=== PATIENT | male | born 1940 | race Caucasian/White ===

== ENCOUNTER 2019-05-24 14:02 | Outpatient (CLI) | payer MEDICARE, SELFPAY ==
--- NOTE | 2019-05-24 14:18 | XRR_ITS ---
PROCEDURE INFORMATION: Exam: XR Chest, 2 Views Exam date and time: 05/24/2019 2:18 PM Age: 79 years old Clinical indication: Condition or disease; Other: Renal cell cancer; Additional info: Renal cell carcinoma TECHNIQUE: Imaging protocol: XR of the chest Views: 2 views. COMPARISON: [place] Chest 1 [place] [id number] 03/09/2019 10:[address] abdomen pelvis wo con [id number] 03/09/2019 10:32:08 PM FINDINGS: Lungs: Unremarkable. No consolidation. Pleural space: Unremarkable. No pleural effusion. No pneumothorax. Heart/Mediastinum: CABG. No cardiomegaly. Bones/joints: No acute findings. Sternotomy. XR/XR chest 2V* [id number] IMPRESSION: No acute findings. Lung nodules seen in the lung bases on abdominal CT 03/09/2019 are not discretely identified. Consider follow-up chest CT.
[2019-05-24 14:37] LABS: Basophils # 0.1 10^3/uL (0.0-0.1); Basophils % 0.8 %; Eosinophils # 0.2 10^3/uL (0.0-0.8); Hematocrit 48.5 % (42.0-52.0); Hemoglobin 15.9 g/dL (11.7-16.6); Lymphocytes # 2.1 10^3/uL (0.8-4.8); Lymphocytes % 27.1 %; Mean Corpuscular HGB Conc 32.8 g/dL (30.0-36.0); Mean Corpuscular Hemoglobin 30.8 pg (28.0-34.0); Mean Corpuscular Volume 93.8 fL (80-94); Mean Platelet Volume 10.9 fL (7.4-10.4); Monocytes # 0.6 10^3/uL (0.2-0.9); Monocytes % 7.4 %; Neutrophils # 4.7 10^3/uL (1.8-7.7); Neutrophils % 61.6 %; Nucleated Red Blood Cells % 0 %; Platelet Count 215 10^3/cmm (130-400); Red Blood Count 5.17 10^6/uL (4.1-5.3); Red Cell Distribution Width 13.8 % (12.1-15.1); White Blood Count 7.6 10^3/uL (4.0-10.0)
[2019-05-24 15:17] LABS: Alanine Aminotransferase 16 U/L (0-41); Albumin Level 3.8 g/dL (3.5-5.2); Alkaline Phosphatase 157 IU/L (40-130); Anion Gap 16.3 (5-19); Aspartate Amino Transferase 17 U/L (0-40); Blood Urea Nitrogen 16 mg/dL (8-23); Carbon Dioxide 26 mmol/L (22-29); Chloride 101 mmol/L (98-107); Globulin 3.5 g/dL (1.3-4.6); Glucose 156 mg/dL (74-106); Potassium 4.3 mmol/L (3.5-5.1); Sodium 139 mmol/L (136-145); Total Bilirubin 0.5 mg/dL (0.15-1.2); Total Protein 7.3 g/dL (6.6-8.7)
== END 2019-05-24 14:03 | disposition home or self-care (01) ==
LOC: RAD 14:10
PROVIDERS: Family Provider Registered Nurse; PCP Family Medicine; Visit Provider Urology
DX: C64.9 Malignant neoplasm of unspecified kidney, except renal pelvis (principal)
CPT/HCPCS: 71046; 80053; 81001; 85025

== ENCOUNTER 2019-06-20 09:33 | Outpatient (CLI) | payer MEDICARE, SELFPAY ==
--- NOTE | 2019-06-20 11:00 | CT_ITS ---
WS: [id number] CT ABDOMEN PELVIS TECHNIQUE: Noncontrast CT of the abdomen and pelvis with coronal and sagittal reformatted images. CLINICAL INFORMATION: Stone protocol COMPARISON: None. DLP: 593.[address] scans at [facility] use at least one of these dose optimization techniques: automat ed exposure control; mA and/or kV adjustment per patient size (includes targeted exams where dose is matched to clinical indication); or iterative reconstruction. FINDINGS: Noncontrast liver is normal in appearance. Cholelithiasis with large gallstone measuring 11 mm. No si gnificant gallbladder wall thickening or fluid in the gallbladder fossa. Normal spleen. Moderate esop hageal hiatal hernia. Bibasilar atelectasis. Noncalcified nodules in both lower lobes the largest sub pleural left lower lobe measuring 5 mm. Additional noncalcified nodule right lower lobe laterally mickey suring 5.3 mm. Additional smaller noncalcified nodules in the right and left lower lobe with nodular infiltrates in the left lower lobe. Nodules measure 8 to 9 mm. A few tiny subcentimeter right middle lobe nodules partially visualized. Normal right adrenal gland. Prior postoperative changes left nephrectomy. Left adrenal nodule measuri ng 15 mm appears progressed from the last several studies. While this may represent a lipid poor pina [place] metastatic disease not excluded. Small esophageal varices. Fatty atrophy of the pancreas. No hydr onephrosis right kidney. Sigmoid diverticulosis. No evidence of acute diverticulitis. Chronic anterior wedging at T12 with mild retropulsion of the posterior cortex with moderate central canal stenosis. Increased lytic changes in the posterior T12 vertebral body with soft tissue mass and erosion of the posterior cortex consistent with metastatic disease. Associated pathologic compressio n. Lytic changes extending into the pedicles bilaterally. Associated epidural involvement with modera te central canal stenosis. Message left for Dr. Lindsay's nurse at 06/20/2019 11:[address]/CT kidney stone [id number] IMPRESSION: 1. Prior postoperative changes left nephrectomy. 2. No right renal parenchymal or ureteral calculi. No hydronephrosis. 3. Stable prominent gallstone measuring 11 mm. 4. Multiple pulmonary nodules in the lung bases the largest measuring 8 to 9 m m. These appear progressed in size and number since March 09, 2019 suspiciou s for metastatic disease. Recommend further evaluation with chest CT. 5. Left adrenal lesion is increased in size over the past several studies toda y measuring 1.4 cm. This may represent a lipid poor adenoma but metastatic dise ase not excluded. 6. Pathologic Compression with anterior wedging of the T12 vertebral body with moderate central canal stenosis. Lytic lesion in the posterior T12 vertebral b johann has progressed consistent with metastatic disease. Associated epidural invo lvement. This can be further evaluated with MRI. Mild to moderate central canal stenosis. 7. Also consider PET CT for further evaluation
== END 2019-06-20 09:34 | disposition home or self-care (01) ==
LOC: CT 09:36
PROVIDERS: Family Provider Registered Nurse; PCP Family Medicine; Visit Provider Urology
DX: Z98.890 Other specified postprocedural states (principal); K80.80 Other cholelithiasis without obstruction; R91.8 Other nonspecific abnormal finding of lung field; E27.8 Other specified disorders of adrenal gland; M48.04 Spinal stenosis, thoracic region
CPT/HCPCS: 74176

== ENCOUNTER 2019-06-28 09:21 | Outpatient (CLI) | payer MEDICARE, SELFPAY ==
--- NOTE | 2019-06-28 15:18 | ONC CON_ITS ---
Dr. Shahid New Patient Note Patient: Asher Che Unit #: [id number]: 1940 Dicatated By: Jonnie Shahid M.D.Date of Visit: Jun 28, 2019 Onc MED New Patient/Consult Referring Physician: Dr. Efren Lindsay M.D. History of Present Illness: Mr. 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 Patient was also noted to have left adrenal mass for which on 02/08/2019 he underwent laparoscopic nephroureterectomy/robot assisted. And final pathology report showed unifocal tumor size 4 x 3 x 2.8 cm, clear cell renal cell carcinoma, no sarcomatoid feature, but rhabdoid features present focally, grade 4, no tumor necrosis, tumor extends into renal sinus fat, lymphovascular invasion was indeterminate, probably positive. T3a, No lymph nodes submitted or none found for evaluation e.g. Nx Stage III Patient has history of back injury about 20 years ago but no surgical intervention was done rather treated conservatively with brace. His bone scan prior to left nephrectomy was done on 02/01/2019 showed foci of intense increase uptake in the left transverse processes of T10, T11, T12 and L1. Due to the distribution suspect these are probably due to fracture not metastatic disease. Additional intense focus of uptake in anterior lateral left 11th rib, may also be a fracture due to recent history of trauma. Soft tissue abnormalities seen on the lumbar spine CT scan at T12 in the posterior vertebral body does not demonstrate increase uptake. Patient denies any back pain, denies any lower extremity weakness or numbness, denies any urine or stool incontinence. Denies any weight loss, appetite is good. Patient underwent follow-up CT scan of abdomen pelvis on 06/23/2019, it showed multiple pulmonary nodules in the lung bases the largest measure 8-9 mm. These appear progressed in size and number since 03/09/2019 suspicious for metastatic disease. Left adrenal lesion is increased in size over the past several month now measuring 1.4 cm , metastatic disease is not excluded. Pathological compression with anterior wedging of T12 vertebral body with moderate central canal stenosis. Lytic lesion in the posterior T12 vertebral body, has progressed consistent with metastatic disease. Associated epidural involvement. Patient denies any hematuria or dysuria, patient denies any back pain. Patient has history of stroke now good recovery and mobilized with the help of walker. Past Medical History: Mr. Castellanos medical history consists of coronary artery disease, gouty arthritis, history of basal cell cancer, hyperlipidemia, hypertension, stroke, and type II diabetes. Past Surgical History: Mr. Castellanos surgical/procedural history consists of cataract excision, coronary artery bypass, left nephrectomy, and right carotid artery. Medications: Allopurinol 1 Tablet (of 100 mg) Oral daily, Aspirin 1 Tablet (of 81 mg) Oral daily, Clopidogrel Bisulfate 1 Tablet (of 75 mg) Oral daily, Lisinopril 1 Tablet (of 10 mg) Oral at bedtime, Lisinopril 1 Tablet (of 40 mg) Oral daily, Metoprolol Tartrate 1 Tablet (of 100 mg) Oral daily, Simvastatin 1 Tablet (of 40 mg) Oral at bedtime Allergies: No Known Allergies. Social History: Mr. Che is and he is retired. Mr. Che no longer smokes. He has no history of drinking. He has indicated exposure to the following products: chewing tobacco. Family History: Mr. Jamesons mother at age 72: heart disease. Mr. Che's father at age 70: lung cancer. Review Of Symptoms: Constitutional - Appetite is poor and weight is stable. No fever, chills, hot flashes, or night sweats. Energy level is poor, ENMT - No sinus congestion/drainage. No mouth sores. No sore throat or difficulty swallowing, Hematologic/Lymphatic - Positive for easy bruising and bleeding, Respiratory - No shortness of breath. No cough. No pleuritic pain or hemoptysis, Cardiovascular - No angina pain. No palpitations, Gastrointestinal - No nausea or vomiting. Positive for heartburn and acid reflux. No diarrhea or constipation. No blood in the stool or black stools, Genitourinary (M) - No dysuria or hematuria. No urinary frequency. No urgency or incontinence, Musculoskeletal - No joint or bone pain, Neurologic - No headache or dizziness. Positive for hx of stroke, Psychiatric - No anxiety or depression. No insomnia. Vital Signs: Most recent vitals are not available for this patient. Performance Status: 1 - No physically strenuous activity, but ambulatory and able to carry out light or sedentary work (e.g. office work, light house work). (ECOG) Physical Examination: ENMT - No oral exudates, ulcers, masses, thrush or mucositis. Oropharynx clear. Tongue normal, Respiratory - Lungs are clear to auscultation without rhonchi or wheezing, Cardiovascular - Regular rate and rhythm of heart, Abdomen - Non-tender, non-distended, Good bowel sounds. No guarding or rebound tenderness. No pulsatile masses, Extremities - no edema. Lab/Imaging: Most recent lab results are not available for this patient. 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 by 3 x 2.8 cm no sarcomatoid features seen, but rhabdoid features seen focally, lymphovascular invasion indeterminate, probably positive. Clear surgical margin but tumor extends into renal sinus fat, but not beyond Gerota's fascia., T3a No lymph nodes submitted are none found in the specimen for evaluation e.g. Nx Stage III History of transitional carcinoma involving the right ureter status post complete excision, now being followed by urology bone scan done on 02/01/2019 showed increase uptake in the left transverse processes of T10, T11, T12 and L1, due to the distribution suspect these are probably fractures and not metastatic disease. Soft tissue abnormality seen on lumbar spine CT scan at T12 in the posterior vertebral body does not demonstrate increase uptake. Additionally intense focus of uptake in the anterior lateral left 11th rib may also be a fracture due to recent history of trauma. History of back injury 20 years ago History of CABG History of CVA Follow-up CT scan of abdomen pelvis done on 06/20/2019 showed multiple pulmonary nodules in the lung bases the largest measuring 8-9 mm these appear progressed in size and number since 03/09/2019 suspicious for metastatic disease Left adrenal lesion is increased in size over the past several months measuring 1.4 cm, metastatic disease cannot be excluded Pathologic compression with anterior wedging of T12 vertebral body with a moderate central canal stenosis. Lytic lesion in the posterior T12 vertebral body has progressed consistent with metastatic disease. Associated epidural involvement. Plan: Discussed with patient regarding his recently done CT scan of abdomen pelvis finding, which showed progressive bilateral lung bases lesions and pathological compression fractures/lytic lesion of T12 but patient is not symptomatic , denies any back pain or lower extremity weakness or urine or stool incontinence. Patient has history of clear cell renal cell carcinoma involving left kidney status post nephrectomy, T3a lesion but no lymph node was available for evaluation, stage III disease and now being observed by urology. Patient also has history of transitional cell carcinoma involving the right ureter status post ureteroscopy and complete excision with a no evidence of recurrence of disease but now being followed by urology closely. Findings seen on his recent follow-up CT scan of abdomen pelvis are worrisome for metastatic disease but not clear but there is a transitional cell carcinoma or clear cell renal cell carcinoma. At this point we'll consider CT PET scan to assess disease status and if it shows metastatic disease then consider biopsy if is possible Also consider MRI scan thoracic spine with special attention to T12. Patient was advised in case there is a worsening of symptoms e.g. recurrence of back pain or lower extremity weakness or urine or stool incontinence, he need to go to hospital immediately otherwise we'll see him back after CT PET scan/MRI thoracic spine done with CBC CMP. Signed By: Jonnie Shahid M.D. <<Signature on File>>
== END 2019-06-28 09:22 | disposition home or self-care (01) ==
LOC: ONCMED 09:21
PROVIDERS: Family Provider Registered Nurse; PCP Family Medicine; Referring Provider Urology; Visit Provider Internal Medicine Hematology & Oncology
DX: C64.2 Malignant neoplasm of left kidney, except renal pelvis (principal); M89.9 Disorder of bone, unspecified; R91.8 Other nonspecific abnormal finding of lung field; M48.54XA Collapsed vertebra, not elsewhere classified, thoracic region, initial encounter for fracture; E27.9 Disorder of adrenal gland, unspecified; Z85.54 Personal history of malignant neoplasm of ureter; Z90.5 Acquired absence of kidney; Z95.1 Presence of aortocoronary bypass graft; Z86.73 Personal history of transient ischemic attack (TIA), and cerebral infarction without residual deficits; Z87.828 Personal history of other (healed) physical injury and trauma; Z87.891 Personal history of nicotine dependence
CPT/HCPCS: 99203

== ENCOUNTER 2019-07-10 14:32 | Outpatient (CLI) | payer MEDICARE, SELFPAY ==
--- NOTE | 2019-07-10 14:43 | MR_ITS ---
WS: [id number] MRI of the thoracic spine, with and without IV contrast, 07/10/2019 Clinical Data: HX OF Cancer; difficulty Walking; renal CANCER Comparison: MRI thoracic spine, 03/26/2011, CT abdomen and pelvis, 06/20/2019. Findings: There are compression fractures of the T5 vertebral body which is unchanged, and the T12 vertebral barbra dy which has changed. The posterior two thirds of the T12 vertebral body shows enhancement with IV co ntrast which is consistent with metastatic disease. There is also retropulsion of the posterior aspec t of the T12 vertebral body of 0.725 cm. There is enhancement of the T12 pedicles indicating metastat ic involvement. The T5 compression fracture has not changed. No new compression fractures are seen. The disc heights are normal. The spinal cord is moderately compressed at the T12 level. The upper thoracic spinal cord shows no abnormal signal, cysts or masses. There is a left adrenal enlargement which is probably an adrenal nodule although metastatic disease is possible. The left kidney is absent. Impression: 1. Probable metastatic involvement of the posterior two thirds of the T12 vertebral body along with i nvolvement of the T12 pedicles. 2. 0.725 retropulsion of the T12 vertebral body which is new. 3. Old compression fracture of T12 with loss of greater than 75% of the central vertebral body height .
== END 2019-07-10 14:33 | disposition home or self-care (01) ==
LOC: RADSHAW 14:39
PROVIDERS: Family Provider Registered Nurse; PCP Family Medicine; Visit Provider Internal Medicine Hematology & Oncology
DX: C64.2 Malignant neoplasm of left kidney, except renal pelvis (principal); C79.51 Secondary malignant neoplasm of bone; R26.2 Difficulty in walking, not elsewhere classified
CPT/HCPCS: 72157; A9579

== ENCOUNTER 2019-07-12 08:56 | Outpatient (CLI) | payer MEDICARE, SELFPAY ==
[2019-07-12 09:35] LABS: Basophils # 0.1 10^3/uL (0.0-0.1); Basophils % 0.8 %; Eosinophils # 0.2 10^3/uL (0.0-0.8); Eosinophils % 3.9 %; Hematocrit 47.1 % (42.0-52.0); Hemoglobin 14.7 g/dL (11.7-16.6); Mean Corpuscular HGB Conc 31.2 g/dL (30.0-36.0); Mean Corpuscular Hemoglobin 29.5 pg (28.0-34.0); Mean Corpuscular Volume 94.4 fL (80-94); Mean Platelet Volume 11.3 fL (7.4-10.4); Monocytes # 0.5 10^3/uL (0.2-0.9); Monocytes % 7.9 %; Neutrophils # 3.4 10^3/uL (1.8-7.7); Neutrophils % 55.2 %; Nucleated Red Blood Cells % 0 %; Platelet Count 212 10^3/cmm (130-400); Red Blood Count 4.99 10^6/uL (4.1-5.3); Red Cell Distribution Width 13.3 % (12.1-15.1); White Blood Count 6.2 10^3/uL (4.0-10.0)
[2019-07-12 09:55] LABS: Alanine Aminotransferase 12 U/L (0-41); Albumin Level 3.9 g/dL (3.5-5.2); Alkaline Phosphatase 139 IU/L (40-130); Anion Gap 13.8 (5-19); Aspartate Amino Transferase 16 U/L (0-40); Blood Urea Nitrogen 13 mg/dL (8-23); Calcium 9.3 mg/dL (8.5-10.5); Carbon Dioxide 26 mmol/L (22-29); Chloride 104 mmol/L (98-107); Globulin 2.6 g/dL (1.3-4.6); Glucose 196 mg/dL (65-115); Osmolality Calculated 292 mOsm/kg (285-295); Potassium 3.8 mmol/L (3.5-5.1); Sodium 140 mmol/L (136-145); Total Bilirubin 0.4 mg/dL (0.15-1.2); Total Protein 6.5 g/dL (6.6-8.7)
--- NOTE | 2019-07-12 14:51 | ONC FU_ITS ---
Dr. Shahid follow up note Patient: Asher Che Unit #: [id number]: 1940 Dicatated By: Jonnie Shahid M.D.Date of Visit:Jul 12, 2019 Onc Med Follow-up/Prog Note History of Present Illness: Mr. 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 Patient was also noted to have left renal mass for which on 02/08/2019 he underwent laparoscopic nephroureterectomy/robot assisted. And final pathology report showed unifocal tumor size 4 x 3 x 2.8 cm, clear cell renal cell carcinoma, no sarcomatoid feature, but rhabdoid features present focally, grade 4, no tumor necrosis, tumor extends into renal sinus fat, lymphovascular invasion was indeterminate, probably positive. T3a, No lymph nodes submitted or none found for evaluation e.g. Nx Stage III Patient has history of back injury about 20 years ago but no surgical intervention was done rather treated conservatively with brace. His bone scan prior to left nephrectomy was done on 02/01/2019 showed foci of intense increase uptake in the left transverse processes of T10, T11, T12 and L1. Due to the distribution suspect these are probably due to fracture not metastatic disease. Additional intense focus of uptake in anterior lateral left 11th rib, may also be a fracture due to recent history of trauma. Soft tissue abnormalities seen on the lumbar spine CT scan at T12 in the posterior vertebral body does not demonstrate increase uptake. Patient denies any back pain, denies any lower extremity weakness or numbness, denies any urine or stool incontinence. Denies any weight loss, appetite is good. Patient underwent follow-up CT scan of abdomen pelvis on 06/23/2019, it showed multiple pulmonary nodules in the lung bases the largest measure 8-9 mm. These appear progressed in size and number since 03/09/2019 suspicious for metastatic disease. Left adrenal lesion is increased in size over the past several month now measuring 1.4 cm , metastatic disease is not excluded. Pathological compression with anterior wedging of T12 vertebral body with moderate central canal stenosis. Lytic lesion in the posterior T12 vertebral body, has progressed consistent with metastatic disease. Associated epidural involvement. Follow-up MRI scan of spine done on 07/10/2019 showed probable metastatic involvement of posterior two third of T12 vertebral body along with involvement of T12 pedicles. 0.725 retropulsion of T12 vertebral body which is new. Old compression fracture of T5 with loss of greater than 75% of central vertebral body height There is a left adrenal enlargement which is probably an adrenal nodule although metastatic disease is possible. Left kidney is absent.CT PET scan was done yesterday and report is pending Patient denies any hematuria or dysuria, patient denies any back pain. Patient has history of stroke now good recovery and mobilized with the help of walker. Came for follow-up, denies any specific complaints no back pain no lower extremity weakness no urine or stool incontinence. No fever or chills no nausea or vomiting no hemoptysis or hematemesis no hematuria. Medications: Allopurinol 1 Tablet (of 100 mg) Oral daily, Aspirin 1 Tablet (of 81 mg) Oral daily, Clopidogrel Bisulfate 1 Tablet (of 75 mg) Oral daily, Lisinopril 1 Tablet (of 10 mg) Oral at bedtime, Lisinopril 1 Tablet (of 40 mg) Oral daily, Metoprolol Tartrate 1 Tablet (of 100 mg) Oral daily, Simvastatin 1 Tablet (of 40 mg) Oral at bedtime Allergies: No Known Allergies. Review of Systems: Constitutional - Appetite is poor and weight is stable. No fever, chills, hot flashes, or night sweats. Energy level is poor, ENMT - No sinus congestion/drainage. No mouth sores. No sore throat or difficulty swallowing, Hematologic/Lymphatic - Positive for easy bruising and bleeding, Respiratory - No shortness of breath. No cough. No pleuritic pain or hemoptysis, Cardiovascular - No angina pain. No palpitations, Gastrointestinal - No nausea or vomiting. Positive for heartburn and acid reflux. No diarrhea or constipation. No blood in the stool or black stools, Genitourinary (M) - No dysuria or hematuria. No urinary frequency. No urgency or incontinence, Musculoskeletal - No joint or bone pain, Neurologic - No headache or dizziness. Positive for hx of stroke, Psychiatric - No anxiety or depression. No insomnia. Vital Signs: Performed on Jul 12, 2019 09:06 Height - 72.00 in Weight - 154.0 lbs (HIGH) BSA - 1.91 sq.m BMI - 20.89 Temperature - 96.3 F (LOW) Pulse - 68 /min Respiration - 18 /min BP - 159/76 mm(hg) (HIGH) O2 Sat - 97 % Pain - 0 Performance Status: 1 - No physically strenuous activity, but ambulatory and able to carry out light or sedentary work (e.g. office work, light house work). (ECOG) Physical Examination: ENMT - No oral exudates, ulcers, masses, thrush or mucositis. Oropharynx clear. Tongue normal, Respiratory - Lungs are clear to auscultation without rhonchi or wheezing, Cardiovascular - Regular rate and rhythm of heart, Abdomen - Non-tender, non-distended, Good bowel sounds. No guarding or rebound tenderness. No pulsatile masses, Extremities - no edema. Lab/Imaging: Most recent lab results are not available for this patient. 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 by 3 x 2.8 cm no sarcomatoid features seen, but rhabdoid features seen focally, lymphovascular invasion indeterminate, probably positive. Clear surgical margin but tumor extends into renal sinus fat, but not beyond Gerota's fascia., T3a No lymph nodes submitted are none found in the specimen for evaluation e.g. Nx Stage III History of transitional carcinoma involving the right ureter status post complete excision, now being followed by urology bone scan done on 02/01/2019 showed increase uptake in the left transverse processes of T10, T11, T12 and L1, due to the distribution suspect these are probably fractures and not metastatic disease. Soft tissue abnormality seen on lumbar spine CT scan at T12 in the posterior vertebral body does not demonstrate increase uptake. Additionally intense focus of uptake in the anterior lateral left 11th rib may also be a fracture due to recent history of trauma. History of back injury 20 years ago History of CABG History of CVA Follow-up CT scan of abdomen pelvis done on 06/20/2019 showed multiple pulmonary nodules in the lung bases the largest measuring 8-9 mm these appear progressed in size and number since 03/09/2019 suspicious for metastatic disease Left adrenal lesion is increased in size over the past several months measuring 1.4 cm, metastatic disease cannot be excluded Pathologic compression with anterior wedging of T12 vertebral body with a moderate central canal stenosis. Lytic lesion in the posterior T12 vertebral body has progressed consistent with metastatic disease. Associated epidural involvement. Plan: Discussed with patient regarding his labs white blood count 6.2 hemoglobin 14.7 crit 47.1 platelets 212,000 CMP within normal limits except alkaline phosphatase 139 and MRI scan of spine is report, CT PET scan is pending Clinically, patient doing well with no new signs symptoms, no back pain, no lower extremity weakness or urine or stool incontinence. Occasionally right lower flank discomfort. His CT PET scan report is pending but MRI scan of spine shows probable metastatic involvement of posterior two third of T12 vertebral body along with involvement of T12 pedicles. And case was also discussed with Dr. Lizarraga neurosurgery, he suggested referred to physical therapy for thoracic brace and neurosurgery evaluation. We'll refer patient to him for evaluation VICKIE. Patient was advised in the meantime if he has any new symptoms, new back pain or lower extremity weakness or urine or stool incontinence he need to go to hospital immediately otherwise follow with Dr. Lizarraga for evaluation in the meantime we will obtain CT PET scan report which was done yesterday and assess the disease status. If CT PET scan shows no significant finding then will request Dr. Lizarraga to obtain tissue from T12 vertebra to confirm malignancy . Patient return to clinic 1 week after neurosurgery evaluation. Signed By: Jonnie Shahid M.D. <<Signature on File>>
== END 2019-07-12 08:57 | disposition home or self-care (01) ==
LOC: ONCMED 08:56
PROVIDERS: Family Provider Registered Nurse; PCP Family Medicine; Visit Provider Internal Medicine Hematology & Oncology
DX: C64.2 Malignant neoplasm of left kidney, except renal pelvis (principal); C79.51 Secondary malignant neoplasm of bone; C78.02 Secondary malignant neoplasm of left lung; C78.01 Secondary malignant neoplasm of right lung; Z79.82 Long term (current) use of aspirin; Z79.02 Long term (current) use of antithrombotics/antiplatelets; Z79.899 Other long term (current) drug therapy; Z90.5 Acquired absence of kidney; Z86.73 Personal history of transient ischemic attack (TIA), and cerebral infarction without residual deficits; Z95.1 Presence of aortocoronary bypass graft
CPT/HCPCS: 36415; 80053; 85025; 99214

== ENCOUNTER 2019-07-13 14:41 | Outpatient (CLI) | payer MEDICARE, SELFPAY | END 2019-07-13 14:42 | disposition home or self-care (01) | LOC: SPT 14:43 | PROVIDERS: Family Provider Registered Nurse; PCP Family Medicine; Referring Provider Internal Medicine Hematology & Oncology; Visit Provider Internal Medicine Hematology & Oncology | DX: Z46.89 Encounter for fitting and adjustment of other specified devices (principal) | CPT/HCPCS: L0456 ==

== ENCOUNTER 2019-07-26 07:25 | Outpatient (CLI) | payer MEDICARE, SELFPAY ==
[2019-07-26 12:02] LABS: Basophils # 0.1 10^3/uL (0.0-0.1); Basophils % 0.7 %; Eosinophils # 0.3 10^3/uL (0.0-0.8); Eosinophils % 4.4 %; Hematocrit 46.3 % (42.0-52.0); Hemoglobin 14.5 g/dL (11.7-16.6); Lymphocytes # 2.1 10^3/uL (0.8-4.8); Lymphocytes % 28.6 %; Mean Corpuscular HGB Conc 31.3 g/dL (30.0-36.0); Mean Corpuscular Hemoglobin 28.6 pg (28.0-34.0); Mean Corpuscular Volume 91.3 fL (80-94); Mean Platelet Volume 11.5 fL (7.4-10.4); Monocytes # 0.6 10^3/uL (0.2-0.9); Monocytes % 8.9 %; Neutrophils # 4.1 10^3/uL (1.8-7.7); Neutrophils % 57.3 %; Nucleated Red Blood Cells % 0 %; Platelet Count 223 10^3/cmm (130-400); Red Blood Count 5.07 10^6/uL (4.1-5.3); Red Cell Distribution Width 13.3 % (12.1-15.1); White Blood Count 7.2 10^3/uL (4.0-10.0)
[2019-07-26 13:12] LABS: Alanine Aminotransferase 10 U/L (0-41); Albumin Level 3.9 g/dL (3.5-5.2); Alkaline Phosphatase 124 IU/L (40-130); Anion Gap 14.7 (5-19); Aspartate Amino Transferase 16 U/L (0-40); Blood Urea Nitrogen 11 mg/dL (8-23); Calcium 9.6 mg/dL (8.5-10.5); Carbon Dioxide 25 mmol/L (22-29); Chloride 105 mmol/L (98-107); Globulin 2.5 g/dL (1.3-4.6); Glucose 104 mg/dL (65-115); Osmolality Calculated 286 mOsm/kg (285-295); Potassium 4.7 mmol/L (3.5-5.1); Sodium 140 mmol/L (136-145); Total Bilirubin 0.4 mg/dL (0.15-1.2); Total Protein 6.4 g/dL (6.6-8.7)
== END 2019-07-26 07:26 | disposition home or self-care (01) ==
LOC: ONCMED 14:00
PROVIDERS: Family Provider Registered Nurse; PCP Family Medicine; Visit Provider Internal Medicine Hematology & Oncology
DX: C64.2 Malignant neoplasm of left kidney, except renal pelvis (principal); C79.51 Secondary malignant neoplasm of bone
CPT/HCPCS: 80053; 85025

== ENCOUNTER 2019-07-27 08:51 | Outpatient (RCR) | payer MEDICARE, SELFPAY ==
--- NOTE | 2019-07-27 10:10 | ONC FU_ITS ---
Dr. Shahid follow up note Patient: Asher Che Unit #: [id number]: 1940 Dicatated By: Jonnie Shahid M.D.Date of Visit:Jul 27, 2019 Onc Med Follow-up/Prog Note History of Present Illness: Mr. 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 Patient was also noted to have left renal mass for which on 02/08/2019 he underwent laparoscopic nephroureterectomy/robot assisted. And final pathology report showed unifocal tumor size 4 x 3 x 2.8 cm, clear cell renal cell carcinoma, no sarcomatoid feature, but rhabdoid features present focally, grade 4, no tumor necrosis, tumor extends into renal sinus fat, lymphovascular invasion was indeterminate, probably positive. T3a, No lymph nodes submitted or none found for evaluation e.g. Nx Stage III Patient has history of back injury about 20 years ago but no surgical intervention was done rather treated conservatively with brace. His bone scan prior to left nephrectomy was done on 02/01/2019 showed foci of intense increase uptake in the left transverse processes of T10, T11, T12 and L1. Due to the distribution suspect these are probably due to fracture not metastatic disease. Additional intense focus of uptake in anterior lateral left 11th rib, may also be a fracture due to recent history of trauma. Soft tissue abnormalities seen on the lumbar spine CT scan at T12 in the posterior vertebral body does not demonstrate increase uptake. Patient denies any back pain, denies any lower extremity weakness or numbness, denies any urine or stool incontinence. Denies any weight loss, appetite is good. Patient underwent follow-up CT scan of abdomen pelvis on 06/23/2019, it showed multiple pulmonary nodules in the lung bases the largest measure 8-9 mm. These appear progressed in size and number since 03/09/2019 suspicious for metastatic disease. Left adrenal lesion is increased in size over the past several month now measuring 1.4 cm , metastatic disease is not excluded. Pathological compression with anterior wedging of T12 vertebral body with moderate central canal stenosis. Lytic lesion in the posterior T12 vertebral body, has progressed consistent with metastatic disease. Associated epidural involvement. Follow-up MRI scan of spine done on 07/10/2019 showed probable metastatic involvement of posterior two third of T12 vertebral body along with involvement of T12 pedicles. 0.725 retropulsion of T12 vertebral body which is new. Old compression fracture of T5 with loss of greater than 75% of central vertebral body height There is a left adrenal enlargement which is probably an adrenal nodule although metastatic disease is possible. Left kidney is absent. CT PET scan done on 07/11/2019 showed bulky mediastinal lymphadenopathy including 4 x 2 x 3.8 cm right paratracheal lymph node that shows maximal SUV of 3.69 and a subcarinal lymph node and other enlarged lymph nodes with increase in metabolic activity. No suspicious focal hypermetabolic lung parenchymal activity noted although there are multiple suspicious bilateral pulmonary nodules measuring around 1 cm. Osseous metastatic disease in T12 vertebral body and likely the right ilium. Indeterminate left adrenal mildly metabolic lesion early metastatic disease versus fat poor benign adenoma. Patient was referred to Dr. Lizarraga for evaluation for T12 vertebra, as per patient and his son Cole, patient being referred to [facility] for T12 biopsy to be done in the morning on 07/28/2019. Patient denies any hematuria or dysuria, patient denies any back pain. Patient has history of stroke now good recovery and mobilized with the help of walker. Came for follow-up, complaining of mid back pain since CT PET scan was done, Percocet 5/325, control the pain but cause confusion. Patient is not taking aspirin, as T12 vertebral body biopsy is scheduled for tomorrow morning. And tried Tylenol it did help some. Pain is sometime 8 on the scale of 1-10 now using brace given by physical therapy. Denies any fever chills denies any lower extremity weakness or numbness denies any urine or stool incontinence. Medications: Allopurinol 1 Tablet (of 100 mg) Oral daily, Lisinopril 1 Tablet (of 10 mg) Oral at bedtime, Lisinopril 1 Tablet (of 40 mg) Oral daily, Metoprolol Tartrate 1 Tablet (of 100 mg) Oral daily, Simvastatin 1 Tablet (of 40 mg) Oral at bedtime Allergies: No Known Allergies. Review of Systems: Constitutional - Appetite is poor and weight is stable. No fever, chills, hot flashes, or night sweats. Energy level is poor, ENMT - No sinus congestion/drainage. No mouth sores. No sore throat or difficulty swallowing, Hematologic/Lymphatic - Positive for easy bruising and bleeding, Respiratory - No shortness of breath. No cough. No pleuritic pain or hemoptysis, Cardiovascular - No angina pain. No palpitations, Gastrointestinal - No nausea or vomiting. Positive for heartburn and acid reflux. No diarrhea or constipation. No blood in the stool or black stools, Genitourinary (M) - No dysuria or hematuria. No urinary frequency. No urgency or incontinence, Musculoskeletal - Positive for back pain today. Pt is wearing back brace, Neurologic - No headache or dizziness. Positive for hx of stroke, Psychiatric - No anxiety or depression. No insomnia. Vital Signs: Performed on Jul 27, 2019 08:54 Height - 72.00 in Weight - 154.6 lbs (HIGH) BSA - 1.91 sq.m BMI - 20.97 Temperature - 97.0 F (LOW) Pulse - 62 /min Respiration - 20 /min BP - 150/67 mm(hg) (HIGH) O2 Sat - 96 % Pain - 8 Performance Status: 2 - Ambulatory/capable of all self-care, unable to perform any work activities. Up and about more than 50% of waking hours. (ECOG) Physical Examination: Respiratory - Lungs no wheezing, Extremities - no edema. Lab/Imaging: Test performed on Jul 12, 2019 09:15 Sodium 140 mmol/L Potassium 3.8 mmol/L Chloride 104 mmol/L CO2 26 mmol/L Anion Gap 13.8 BUN 13 mg/dL Creatinine 1.2 mg/dL Cr Clearance (Est) 49.3200 mL/min Glucose 196 mg/dL Calcium 9.3 mg/dL Protein, Total 6.5 g/dL Albumin 3.9 g/dL Globulin 2.6 g/dL Bilirubin, Total 0.4 mg/dL ALT (SGPT) 12 U/L AST (SGOT) 16 U/L Alkaline Phosphatase 139 IU/L WBC 6.2 10 3/uL RBC 4.99 10 6/uL HGB 14.7 g/dL HCT 47.1 % MCV 94.4 fL MCH 29.5 pg MCHC 31.2 g/dL RDW 13.3 % Platelet Count 212 10 3/cmm MPV 11.3 fL Neutrophils 3.4 10 3/uL Lymphocytes 2.0 10 3/uL Monocytes 0.5 10 3/uL Eosinophils 0.2 10 3/uL Basophils 0.1 10 3/uL Neutrophil % 55.2 % Lymphocyte % 32.0 % Monocyte % 7.9 % Eosinophil % 3.9 % Basophils % 0.8 % Impression: History of clear cell renal cell carcinoma involving left kidney status post laparoscopic nephro ureterectomy/robotic-assisted done in January 2019 final pathology report showed clear cell renal cell carcinoma grade 4, unifocal, 4. by 3 x 2.8 cm no sarcomatoid features seen, but rhabdoid features seen focally, lymphovascular invasion indeterminate, probably positive. Clear surgical margin but tumor extends into renal sinus fat, but not beyond Gerota's fascia., T3a No lymph nodes submitted are none found in the specimen for evaluation e.g. Nx Stage III History of transitional carcinoma involving the right ureter status post complete excision, now being followed by urology bone scan done on 02/01/2019 showed increase uptake in the left transverse processes of T10, T11, T12 and L1, due to the distribution suspect these are probably fractures and not metastatic disease. Soft tissue abnormality seen on lumbar spine CT scan at T12 in the posterior vertebral body does not demonstrate increase uptake. Additionally intense focus of uptake in the anterior lateral left 11th rib may also be a fracture due to recent history of trauma. History of back injury 20 years ago History of CABG History of CVA Follow-up CT scan of abdomen pelvis done on 06/20/2019 showed multiple pulmonary nodules in the lung bases the largest measuring 8-9 mm these appear progressed in size and number since 03/09/2019 suspicious for metastatic disease Left adrenal lesion is increased in size over the past several months measuring 1.4 cm, metastatic disease cannot be excluded Pathologic compression with anterior wedging of T12 vertebral body with a moderate central canal stenosis. Lytic lesion in the posterior T12 vertebral body has progressed consistent with metastatic disease. Associated epidural involvement. Plan: Discussed with patient and his son regarding his labs white blood count 7.2 hemoglobin 14.5 crit 46.3 platelets 223,000 CMP within normal limits except creatinine 1.3 Clinically, patient is in [id number] distress due to mid back pain due to T12 vertebral involvement. No neurological signs symptoms. He is scheduled for T12 vertebral biopsy in the morning in [facility] to confirm the primary. In the meantime we will start him on dexamethasone 4 mg every 6 hours for 3 days then taper down to 4 mg 3 times a day for 3 days then twice a day for 3 days, so on. And also refer him to radiation oncology for allergy radiation therapy once biopsy is done. Patient has history of diabetes, he was on metformin but it was discontinued because of concern about nephrotoxicity as patient has only 1 kidney due to history of nephrectomy for renal cell carcinoma. He will return to clinic in 2 weeks to discuss about vertebral body biopsy results and further planning in the meantime he will start steroids after biopsies done in the morning and will see radiation oncology as soon as possible. Patient and son was advised in case there is a focal weakness in the lower extremities or urine or stool incontinence, he need to go to hospital immediately. Signed By: Jonnie Shahid M.D. <<Signature on File>>
== END 2019-07-27 08:52 | disposition home or self-care (01) ==
LOC: ONCMED 08:51
PROVIDERS: Family Provider Registered Nurse; PCP Family Medicine; Visit Provider Internal Medicine Hematology & Oncology
DX: C79.51 Secondary malignant neoplasm of bone (principal); C64.2 Malignant neoplasm of left kidney, except renal pelvis; R91.8 Other nonspecific abnormal finding of lung field; M48.54XA Collapsed vertebra, not elsewhere classified, thoracic region, initial encounter for fracture; E27.9 Disorder of adrenal gland, unspecified; E11.9 Type 2 diabetes mellitus without complications; Z79.899 Other long term (current) drug therapy; Z86.73 Personal history of transient ischemic attack (TIA), and cerebral infarction without residual deficits; Z95.1 Presence of aortocoronary bypass graft; Z90.5 Acquired absence of kidney
CPT/HCPCS: 99214

== ENCOUNTER 2019-08-24 06:51 | Outpatient (RCR) | payer MEDICARE, SELFPAY ==
--- NOTE | 2019-07-31 14:58 | N.ONRAD NP_ITS ---
Radiation Oncology New Patient Visit Patient: Asher Che MR#: [id number] : 1940> Age: 79> Sex: Male> Dictated by: Dr. Chris Aquino Date of Service: 07/31/2019 Referring Physician(s) : Dr. Efren Lindsay Diagnosis: C64.2 - malignant neoplasm of left kidney, except renal pelvis, Diagnosed 06/28/2019 (active) and C79.51 - secondary malignant neoplasm of bone, Diagnosed 06/28/2019 (active). Radiotherapy to date: Summary > No prior radiation therapy. Chief Complaint / History of Present Illness: Mr. 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 Patient was also noted to have left renal mass for which on 02/08/2019 he underwent laparoscopic nephroureterectomy/robot assisted. And final pathology report showed unifocal tumor size 4 x 3 x 2.8 cm, clear cell renal cell carcinoma, no sarcomatoid feature, but rhabdoid features present focally, grade 4, no tumor necrosis, tumor extends into renal sinus fat, lymphovascular invasion was indeterminate, probably positive. T3a, No lymph nodes submitted or none found for evaluation e.g. Nx Patient has history of back injury about 20 years ago but no surgical intervention was done rather treated conservatively with brace. His bone scan prior to left nephrectomy was done on 02/01/2019 showed foci of intense increase uptake in the left transverse processes of T10, T11, T12 and L1. Due to the distribution suspect these are probably due to fracture not metastatic disease. Additional intense focus of uptake in anterior lateral left 11th rib, may also be a fracture due to recent history of trauma. Soft tissue abnormalities seen on the lumbar spine CT scan at T12 in the posterior vertebral body does not demonstrate increase uptake. Patient denies any back pain, denies any lower extremity weakness or numbness, denies any urine or stool incontinence. Denies any weight loss, appetite is good. Patient underwent follow-up CT scan of abdomen pelvis on 06/23/2019, it showed multiple pulmonary nodules in the lung bases the largest measure 8-9 mm. These appear progressed in size and number since 03/09/2019 suspicious for metastatic disease. Left adrenal lesion is increased in size over the past several month now measuring 1.4 cm , metastatic disease is not excluded. Pathological compression with anterior wedging of T12 vertebral body with moderate central canal stenosis. Lytic lesion in the posterior T12 vertebral body, has progressed consistent with metastatic disease. Associated epidural involvement. Follow-up MRI scan of spine done on 07/10/2019 showed probable metastatic involvement of posterior two third of T12 vertebral body along with involvement of T12 pedicles. 0.725 retropulsion of T12 vertebral body which is new. Old compression fracture of T5 with loss of greater than 75% of central vertebral body height There is a left adrenal enlargement which is probably an adrenal nodule although metastatic disease is possible. Left kidney is absent. CT PET scan done on 07/11/2019 showed bulky mediastinal lymphadenopathy including 4 x 2 x 3.8 cm right paratracheal lymph node that shows maximal SUV of 3.69 and a subcarinal lymph node and other enlarged lymph nodes with increase in metabolic activity. No suspicious focal hypermetabolic lung parenchymal activity noted although there are multiple suspicious bilateral pulmonary nodules measuring around 1 cm. Osseous metastatic disease in T12 vertebral body and likely the right ilium. Indeterminate left adrenal mildly metabolic lesion early metastatic disease versus fat poor benign adenoma. Patient was referred to Dr. Lizarraga for evaluation for T12 vertebra, as per patient and his son Cole, patient being referred to [facility] for T12 biopsy to be done in the morning on 07/28/2019. Patient denies any hematuria or dysuria, patient denies any back pain. Patient has history of stroke now good recovery and mobilized with the help of walker. Came for follow-up, complaining of mid back pain since CT PET scan was done, Percocet 5/325, control the pain but cause confusion. Patient is not taking aspirin, as T12 vertebral body biopsy is scheduled for tomorrow morning. And tried Tylenol it did help some. Pain is sometime 8 on the scale of 1-10 now using brace given by physical therapy. Denies any fever chills denies any lower extremity weakness or numbness denies any urine or stool incontinence. Current Medications: Acetaminophen, allopurinol, dexamethasone, lisinopril, lisinopril, metoprolol Tartrate, nystatin, simvastatin. Allergies: No Known Allergies Medical History: - Coronary artery disease, - gouty arthritis, - history of basal cell cancer, - hyperlipidemia, - hypertension, - stroke, - type II diabetes. No history of collagen vascular disease. No previous radiation therapy. Surgical History: Cataract excision, coronary artery bypass, left nephrectomy and right carotid artery. Family History: Father is at age 70 having experienced lung cancer. Mother is at age 72 having experienced heart disease. Social History: Last screened on 07/31/2019 - Yes - but has quit for 50 years. Smoked 1.0 pack/day for 15 years (15 pack years). Last screened on 07/27/2019 - Never drank. Patient indicated use of the following products: chewing tobacco. Current Complaints / Review of Systems: Constitutional - Complains of fatigue. Denies lack of appetite, fever, night sweats and change in weight. Eyes - Has no per vision since the stroke 4 years ago. ENMT - Complains of tinnitus which started a few days ago. Denies dysphagia, mouth dryness, stomatitis and altered taste. Neck - Denies neck pain. Integumentary - Denies rash but will get redness from the back brace. Cardiovascular - Denies arrhythmias, chest pain and edema. Respiratory - Denies cough, dyspnea and wheezing. Gastrointestinal - Complains of constipation. Denies abdominal pain, diarrhea, heartburn / dyspepsia, melena / GI bleeding, nausea and vomiting. Genitourinary (M) - Denies dysuria, frequency, incontinence, nocturia and urgency. Musculoskeletal - Has bilateral flank pain since surgery. Neurologic - Complains of abnormal gait and stroke. Denies dizziness and headaches. Endocrine - Complains of Type 2 diabetes. Denies thyroid disease. Hematologic/Lymphatic - Denies tender or enlarged lymph nodes.. Vital Signs: Performed on 07/31/2019 1:38 PM BMI - 21.022 kg/m2, Height - 72.00 in, Weight - 155.0 lbs, Temperature - 98.3 f, Pulse - 60, Respiration - 20, O2 Sat - 97 %, Pain - 2 and BP - 146/ 62 mm(hg)(high/low). Physical Exam: He is a frail appearing elderly white male in a wheelchair. He is very hard of hearing and his son is with him to assist with answering questions and with the physical exam. He is alert and oriented in all 4 spheres. Head eyes ears nose and throat are within normal limits. Neck is supple. No nodes were felt. The thyroid not felt. The chest is clear to auscultation and percussion. Heart has regular rate rhythm. His abdomen is soft. Liver and spleen are not felt. There is no palpable abdominal organomegaly. There is no pain to palpation or percussion of the axial skeleton including the scapula and the bony pelvis. His neuro His neurologic exam is grossly within physiologic limits. Performance Status: 3 - Capable of only limited self-care, confined to bed or chair more than 50% of waking hours. (ECOG) Pathology: Primary, c64.2 - malignant neoplasm of left kidney, except renal pelvis, Diagnosed 06/28/2019 (active) and Primary, c79.51 - secondary malignant neoplasm of bone, Diagnosed 06/28/2019 (active). Lab: Test performed on 07/26/2019 7:25 AM MPV - 11.5 fl (high), Creatinine - 1.3 mg/dl (high), Cr Clearance (Est) - 45.70 ml/min (low) and Protein, Total - 6.4 g/dl (low). Imaging: See HPI Impression: Bone biopsy of T12 is pending. Should it be positive for malignancy are highly suggestive thereof I would suggest a course of palliative irradiation from approximately the top of T10 to the bottom of L1. Plan: Pending the results of recent bone biopsy. I have discussed the risk and benefits of palliative bone radiation with the patient and his son and have answered their questions to their satisfaction. They have agreed to palliative thoracic radiation and we will proceed with CT-guided simulation pending the results of the biopsy Signed by: 07/31/2019 2:55:55 PM <<Signature on File>> Time spent with patient: 45 minutes was spent with the patient and his son with 15 minutes of counseling. CPT Code: CPT Code:
--- NOTE | 2019-08-08 | CT_ITS ---
Radiation Therapy Planning CT images; total exam DLP: 450.74 mGy-cm MTDD
--- NOTE | 2019-08-08 15:18 | ONCRAD EPV_ITS ---
Radiation Oncology Established Patient Visit Patient: Cj MR#: [id number] : 1940> Age: 79> Sex: Male> Dictated by: Dr. Chris Aquino Date of Service: 08/08/2019 Referring Physician(s) : Dr. Efren Lindsay Diagnosis: C64.2 - Malignant neoplasm of left kidney, except renal pelvis, Diagnosed 06/28/2019 (Active) C79.51 - Secondary malignant neoplasm of bone, Diagnosed 06/28/2019 (Active) Radiotherapy to Date: Chief Complaint / History of Present Illness: Current Medications: Acetaminophen, allopurinol, dexamethasone, lisinopril, lisinopril, metoprolol Tartrate, nystatin, simvastatin. Allergies: No Known Allergies Current Complaints / Review of Systems: Constitutional - Complains of fatigue. Denies lack of appetite, fever and night sweats. Eyes - Has no peripheral vision in both eyes since the stroke 4 years ago. ENMT - Complains of problems with hearing in both ears and it feels like pressure for about a week. Denies dysphagia, mouth dryness, stomatitis and altered taste. Neck - Denies neck pain. Integumentary - Denies rash. Cardiovascular - Denies chest pain and edema. Respiratory - Denies dyspnea and wheezing. Gastrointestinal - Complains of intermittent constipation. Denies abdominal pain, diarrhea, nausea and vomiting. Genitourinary (M) - Complains of nocturia gets up about 1 time per night. Denies dysuria, frequency and urgency. Musculoskeletal - Has bilateral flank pain. Neurologic - Complains of stroke which happened 4 years ago. Denies dizziness and headaches. Endocrine - Complains of Type 2 diabetes. Denies thyroid disease. Hematologic/Lymphatic - Denies tender or enlarged lymph nodes.. Vital Signs: Performed on 08/08/2019 2:02 PM BMI - 21.266 kg/m2, Height - 72.00 in, Weight - 156.8 lbs, Temperature - 98.6 f, Pulse - 61, Respiration - 22, O2 Sat - 97 %, Pain - 0 and BP - 159/ 67 mm(hg)(high/). Physical Exam: General: Alert and oriented x 3. No acute distress. HEENT: Normocephalic, atraumatic. Extraocular Movements Intact: Pupils Equal, Round, Reactive to Light and Accommodation: Sclerae anicteric. Oral cavity is clear without lesions, masses or ulcers. NECK: Supple without supraclavicular or jugular lymphadenopathy. LUNGS: Clear to auscultation bilaterally without rales, rhonchi or wheeze. HEART: Regular rate and rhythm, normal S1 and S2 without murmur, gallop or rub. MUSCULOSKELETAL: No tenderness or percussion pain over the axial skeleton, scapulae or pelvis. ABDOMEN: Soft, nontender, nondistended without masses or organomegaly. Bowell sounds are present. EXTREMITIES: No peripheral edema is identified. Limited motor and sensory examination are grossly intact and symmetric bilaterally. NEUROLOGIC: Cranial nerves II ???XII are grossly intact. Normal sensation, strength 5/5 in all extremities, normal gait, no ataxia. Performance Status: Lab: None pending. Test performed on 07/26/2019 7:25 AM MPV - 11.5 fl (high), Creatinine - 1.3 mg/dl (high), Cr Clearance (Est) - 45.70 ml/min (low) and Protein, Total - 6.4 g/dl (low). Pathology: Primary, c64.2 - malignant neoplasm of left kidney, except renal pelvis, Diagnosed 06/28/2019 (active) and Primary, c79.51 - secondary malignant neoplasm of bone, Diagnosed 06/28/2019 (active). 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 Plan 266 cGy? Fx for 15 fractions (3990cGy/15 fx) T11-L1 Risk and benefits of her radiation have been carefully discussed with the patient and his son and their questions have been answered to their satisfaction. I have elected to proceed with treatment as described above. He has undergone CT-guided simulation today and will embark upon a course of radiation as soon as technically feasible. Signed by: 08/08/2019 3:16:11 PM <<Signature on File>> Time spent with patient: CPT Code: CPT Code:
--- NOTE | 2019-08-16 16:47 | ONCRAD TMN_ITS ---
Radiation Oncology Weekly Treatment Management Patient: Asher Che MR#: [id number] : 1940> Age: 79> Sex: Male Dictated by: Dr. Baldemar Rai Date of Service: 08/16/2019 Referring Physician(s) : Dr. Efren Lindsay Primary Diagnosis: C64.2 - Malignant neoplasm of left kidney, except renal pelvis, Diagnosed 06/28/2019 (Active) C79.51 - Secondary malignant neoplasm of bone, Diagnosed 06/28/2019 (Active) Radiotherapy to date: Course: SpineMets, Treatment Site: SpineMets, Ref. ID: SpineMets, Energy: 15X/6X, Dose/Fx (cGy): 266, #Fx: , Dose Correction (cGy): 0, Total Dose (cGy): 1,596, Start Date: 08/09/2019, Elapsed Days: 7 Current Complaints/Interval History: Notes chronic left flank pain since nephrectomy. Currently no pain is present. Eating ok. Now off steroids. No N or V. Swallowing ok. Constitutional Complains of severe fatigue. Denies lack of appetite, fever and night sweats. Gastrointestinal Complains of heartburn / dyspepsia occasionally. Denies abdominal pain, constipation, diarrhea, nausea and vomiting. Genitourinary (M) Complains of nocturia gets up 1 time per night. Denies dysuria, frequency and urgency. Musculoskeletal Complains of bone pain in the lower back after laying on the table for treatment. Complains of generalized muscle weakness. Has left side flank pain that is under the rib cage Current Medications: Acetaminophen, allopurinol, dexamethasone, lisinopril, lisinopril, metoprolol Tartrate, nystatin, simvastatin. Allergies: No Known Allergies Vital Signs: Performed on 08/16/2019 12:17 PM BMI - 21.347 kg/m2, Height - 72.00 in, Weight - 157.4 lbs, Temperature - 98.2 f, Pulse - 74, Respiration - 18, O2 Sat - 96 %, Pain - 0 and BP - 155/ 72 mm(hg)(high/). Physical Exam: Appears stable, no skin erythema or desquamation. Performance Status: 3 - Capable of only limited self-care, confined to bed or chair more than 50% of waking hours. (ECOG) Lab: None pending in Radiation Oncology. Test performed on 07/26/2019 7:25 AM MPV - 11.5 fl (high), Creatinine - 1.3 mg/dl (high), Cr Clearance (Est) - 45.70 ml/min (low) and Protein, Total - 6.4 g/dl (low). Imaging: No new diagnostic imaging was performed since the last weekly treatment visit. All radiation therapy related imaging (including but not limited to kV, MV, and CBCT generated images) was reviewed. Appropriate changes, if any, were made to assure accurate target localization. Impression/Plan: Tolerating treatment well with expected side effects. Continue treatment as planned. CPT: 98556 Signed by: Dr. Baldemar Rai>08/16/2019 4:46:22 PM <<Signature on File>>
--- NOTE | 2019-08-23 13:09 | ONCRAD TMN_ITS ---
Radiation Oncology Weekly Treatment Management Patient: Asher Che MR#: [id number] : 1940> Age: 79> Sex: Male Dictated by: Dr. Baldemar Rai Date of Service: 08/23/2019 Referring Physician(s) : Dr. Efren Lindsay Primary Diagnosis: C64.2 - Malignant neoplasm of left kidney, except renal pelvis, Diagnosed 06/28/2019 (Active) C79.51 - Secondary malignant neoplasm of bone, Diagnosed 06/28/2019 (Active) Radiotherapy to date: Course: SpineMets, Treatment Site: SpineMets, Ref. ID: SpineMets, Energy: 15X/6X, Dose/Fx (cGy): 266, #Fx: , Dose Correction (cGy): 0, Total Dose (cGy): 2,926, Start Date: 08/09/2019, Elapsed Days: 14 Current Complaints/Interval History: Back pain same. Son gives him ??? of 5/325 HC/APAP. Any more medication causes hallucinations. Prefers to sleep on couch. Eating is fair. Constitutional Complains of lack of appetite. Complains of mild fatigue. Complains of change in weight in which his weight is down 7.4 lbs. since last week. Denies fever and night sweats. Integumentary Has redness to the middle of the back Gastrointestinal Complains of intermittent constipation. Denies abdominal pain, diarrhea, heartburn / dyspepsia, nausea and vomiting. Genitourinary (M) Complains of nocturia gets up about 1 time per night. Denies dysuria, frequency and urgency. Musculoskeletal Complains of bone pain Has increased lower back pain and is hurting worse with laying down at night and after Radiation Treatment.. Complains of generalized muscle weakness. Current Medications: Acetaminophen, allopurinol, dexamethasone, lisinopril, lisinopril, metoprolol Tartrate, nystatin, simvastatin. Allergies: No Known Allergies Vital Signs: Performed on 08/23/2019 11:58 AM BMI - 20.317 kg/m2, Height - 72.00 in, Weight - 149.8 lbs, Temperature - 98.5 f, Pulse - 78, Respiration - 18, O2 Sat - 95 % (low), Pain - 6 and BP - 147/ 81 mm(hg)(high/). Physical Exam: Appears stable, no skin erythema or desquamation. Performance Status: 3 - Capable of only limited self-care, confined to bed or chair more than 50% of waking hours. (ECOG) Lab: None pending in Radiation Oncology. Test performed on 07/26/2019 7:25 AM MPV - 11.5 fl (high), Creatinine - 1.3 mg/dl (high), Cr Clearance (Est) - 45.70 ml/min (low) and Protein, Total - 6.4 g/dl (low). Imaging: No new diagnostic imaging was performed since the last weekly treatment visit. All radiation therapy related imaging (including but not limited to kV, MV, and CBCT generated images) was reviewed. Appropriate changes, if any, were made to assure accurate target localization. Impression/Plan: Tolerating treatment well with expected side effects. Continue treatment as planned. Discussed advanced directives and I recommended a ???no code??? status. Also I recommended hospice for chronic care needs at home. HC/APAP 5/325 mg #120 renewed. CPT: 50681 Signed by: Dr. Baldemar Rai>08/23/2019 1:07:40 PM <<Signature on File>>
== END 2019-08-24 23:59 | disposition home or self-care (01) ==
LOC: ONCMED 06:51
PROVIDERS: Family Provider Registered Nurse; PCP Family Medicine; Visit Provider Radiology Radiation Oncology
DX: Z51.0 Encounter for antineoplastic radiation therapy (principal); C79.51 Secondary malignant neoplasm of bone; C64.2 Malignant neoplasm of left kidney, except renal pelvis; R91.8 Other nonspecific abnormal finding of lung field; E27.9 Disorder of adrenal gland, unspecified; M54.6 Pain in thoracic spine; F17.220 Nicotine dependence, chewing tobacco, uncomplicated; Z85.54 Personal history of malignant neoplasm of ureter; Z90.5 Acquired absence of kidney; Z86.73 Personal history of transient ischemic attack (TIA), and cerebral infarction without residual deficits
CPT/HCPCS: 77300; 77301; 77334; 77336; 77338; 77386; 77387; 99204; 99212

== ENCOUNTER 2019-08-29 06:44 | Outpatient (RCR) | payer MEDICARE, SELFPAY ==
--- NOTE | 2019-08-29 15:18 | ONCRAD TMN_ITS ---
Radiation Oncology Weekly Treatment Management Patient: Asher Che MR#: [id number] : 1940> Age: 79> Sex: Male Dictated by: Dr. Baldemar Rai Date of Service: 08/29/2019 Referring Physician(s) : Dr. Efren Lindsay Primary Diagnosis: C64.2 - Malignant neoplasm of left kidney, except renal pelvis, Diagnosed 06/28/2019 (Active) C79.51 - Secondary malignant neoplasm of bone, Diagnosed 06/28/2019 (Active) Radiotherapy to date: Course: SpineMets, Treatment Site: SpineMets, Ref. ID: SpineMets, Energy: 15X/6X, Dose/Fx (cGy): 266, #Fx: , Dose Correction (cGy): 0, Total Dose (cGy): 3,990, Start Date: 08/09/2019, End Date: 08/29/2019, Elapsed Days: 20 Current Complaints/Interval History: Still complaining of same central abdominal and left flank pain which is chronic and present since nephrectomy. No real back pain. Takes a pain med before bed and able to sleep all night. Sleeping on couch. [id number] would like him to have a hospital bed. Now off of dexamethasone. He did not tolerate steroids as it made him cry inappropriately. Since then appetite has declined. Discussed hospice with them. They will finalize a decision with Dr. Shahid. Constitutional Complains of lack of appetite and fatigue. Integumentary Denies rash. Cardiovascular Denies chest pain and edema. Respiratory Denies cough and dyspnea. Gastrointestinal Complains of constipation that began within the last several days. Denies nausea and vomiting. Genitourinary (M) Complains of frequency. Denies dysuria and hematuria. Musculoskeletal Complains of bone pain in his sides and back and joint pain. Psychiatric Denies depression. Hematologic/Lymphatic Complains of easy bruising. Current Medications: Acetaminophen, allopurinol, dexamethasone, hYDROcodone-Acetaminophen, hYDROcodone-Acetaminophen, lisinopril, lisinopril, metoprolol Tartrate, nystatin, simvastatin. Allergies: No Known Allergies Vital Signs: Performed on 08/29/2019 11:04 AM Height - 72.00 in, Weight - 147.4 lbs (low), BSA - 1.87 sq.m, BMI - 19.99, Temperature - 98.3 f (low), Pulse - 80 /min, Respiration - 17 /min, O2 Sat - 95 % (low), Pain - 6 and BP - 169/ 82 mm(hg)(high/). Physical Exam: Appears stable, no skin erythema or desquamation. Performance Status: 3 - Capable of only limited self-care, confined to bed or chair more than 50% of waking hours. (ECOG) Lab: None pending in Radiation Oncology. Test performed on 07/26/2019 7:25 AM MPV - 11.5 fl (high), Creatinine - 1.3 mg/dl (high), Cr Clearance (Est) - 45.70 ml/min (low) and Protein, Total - 6.4 g/dl (low). Imaging: No new diagnostic imaging was performed since the last weekly treatment visit. All radiation therapy related imaging (including but not limited to kV, MV, and CBCT generated images) was reviewed. Appropriate changes, if any, were made to assure accurate target localization. Impression/Plan: Tolerating treatment well with expected side effects. Treatment completed today. Follow-up in one month. CPT: 72716 Signed by: Dr. Baldemar Rai>08/29/2019 3:17:45 PM <<Signature on File>>
--- NOTE | 2019-09-04 11:09 | ONC FU_ITS ---
Dr. Shahid follow up note Patient: Asher Che Unit #: [id number]: 1940 Dicatated By: Jonnie Shahid M.D.Date of Visit:August 29, 2019 Onc Med Follow-up/Prog Note History of Present Illness: Mr. 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 Patient was also noted to have left renal mass for which on 02/08/2019 he underwent laparoscopic nephroureterectomy/robot assisted. And final pathology report showed unifocal tumor size 4 x 3 x 2.8 cm, clear cell renal cell carcinoma, no sarcomatoid feature, but rhabdoid features present focally, grade 4, no tumor necrosis, tumor extends into renal sinus fat, lymphovascular invasion was indeterminate, probably positive. T3a, No lymph nodes submitted or none found for evaluation e.g. Nx Stage III Patient has history of back injury about 20 years ago but no surgical intervention was done rather treated conservatively with brace. His bone scan prior to left nephrectomy was done on 02/01/2019 showed foci of intense increase uptake in the left transverse processes of T10, T11, T12 and L1. Due to the distribution suspect these are probably due to fracture not metastatic disease. Additional intense focus of uptake in anterior lateral left 11th rib, may also be a fracture due to recent history of trauma. Soft tissue abnormalities seen on the lumbar spine CT scan at T12 in the posterior vertebral body does not demonstrate increase uptake. Patient denies any back pain, denies any lower extremity weakness or numbness, denies any urine or stool incontinence. Denies any weight loss, appetite is good. Patient underwent follow-up CT scan of abdomen pelvis on 06/23/2019, it showed multiple pulmonary nodules in the lung bases the largest measure 8-9 mm. These appear progressed in size and number since 03/09/2019 suspicious for metastatic disease. Left adrenal lesion is increased in size over the past several month now measuring 1.4 cm , metastatic disease is not excluded. Pathological compression with anterior wedging of T12 vertebral body with moderate central canal stenosis. Lytic lesion in the posterior T12 vertebral body, has progressed consistent with metastatic disease. Associated epidural involvement. Follow-up MRI scan of spine done on 07/10/2019 showed probable metastatic involvement of posterior two third of T12 vertebral body along with involvement of T12 pedicles. 0.725 retropulsion of T12 vertebral body which is new. Old compression fracture of T5 with loss of greater than 75% of central vertebral body height There is a left adrenal enlargement which is probably an adrenal nodule although metastatic disease is possible. Left kidney is absent. CT PET scan done on 07/11/2019 showed bulky mediastinal lymphadenopathy including 4 x 2 x 3.8 cm right paratracheal lymph node that shows maximal SUV of 3.69 and a subcarinal lymph node and other enlarged lymph nodes with increase in metabolic activity. No suspicious focal hypermetabolic lung parenchymal activity noted although there are multiple suspicious bilateral pulmonary nodules measuring around 1 cm. Osseous metastatic disease in T12 vertebral body and likely the right ilium. Indeterminate left adrenal mildly metabolic lesion early metastatic disease versus fat poor benign adenoma. Patient was referred to Dr. Lizarraga for evaluation for T12 vertebra, as per patient and his son Cole, patient being referred to [place] for T12 biopsy to be done in the morning on 07/28/2019. Patient denies any hematuria or dysuria, patient denies any back pain. Patient has history of stroke now good recovery and mobilized with the help of walker. Came for follow-up, complaining of persistent mid back pain requiring narcotics, patient and his [id number] said his pain did not improve with radiation therapy and radiation oncologist has advised hospice care. Patient denies any fever chills, denies any nausea vomiting, denies any headaches blurred vision or double vision denies any lower extremity numbness. Or urine or stool incontinence. Medications: Acetaminophen 1 - 2 Tablet (of 500 mg) Tablet Oral daily PRN, Allopurinol 1 Tablet (of 100 mg) Oral daily, HYDROcodone-Acetaminophen 1 Tablet (of 5-325 mg) Tablet Oral b.i.d., Lisinopril 1 Tablet (of 10 mg) Oral at bedtime, Lisinopril 1 Tablet (of 40 mg) Oral daily, Metoprolol Tartrate 1 Tablet (of 100 mg) Oral daily, Simvastatin 1 Tablet (of 40 mg) Oral at bedtime Allergies: No Known Allergies. Review of Systems: Constitutional - Complains of lack of appetite and fatigue, Integumentary - Denies rash, Cardiovascular - Denies chest pain and edema, Respiratory - Denies cough and dyspnea, Gastrointestinal - Complains of constipation that began within the last several days. Denies nausea and vomiting, Genitourinary (M) - Complains of frequency. Denies dysuria and hematuria, Musculoskeletal - Complains of bone pain in his sides and back and joint pain, Psychiatric - Denies depression, Hematologic/Lymphatic - Complains of easy bruising. Vital Signs: Performed on August 29, 2019 11:04 Height - 72.00 in Weight - 147.4 lbs (LOW) BSA - 1.87 sq.m BMI - 19.99 Temperature - 98.3 F (LOW) Pulse - 80 /min Respiration - 17 /min BP - 169/82 mm(hg) (HIGH) O2 Sat - 95 % (LOW) Pain - 6 Performance Status: 3 - Capable of only limited self-care, confined to bed or chair more than 50% of waking hours. (ECOG) Physical Examination: ENMT - no mouth sores or thrush, Respiratory - clear to auscultation, Cardiovascular - Regular rate and rhythm of heart, Abdomen - soft, bowel sounds present, Extremities - no rash, 1+ edema. Lab/Imaging: Test performed on Jul 26, 2019 07:25 Sodium 140 mmol/L Potassium 4.7 mmol/L Chloride 105 mmol/L CO2 25 mmol/L Anion Gap 14.7 BUN 11 mg/dL Creatinine 1.3 mg/dL Cr Clearance (Est) 45.70 mL/min Glucose 104 mg/dL Calcium 9.6 mg/dL Protein, Total 6.4 g/dL Albumin 3.9 g/dL Globulin 2.5 g/dL Bilirubin, Total 0.4 mg/dL ALT (SGPT) 10 U/L AST (SGOT) 16 U/L Alkaline Phosphatase 124 IU/L WBC 7.2 10 3/uL RBC 5.07 10 6/uL HGB 14.5 g/dL HCT 46.3 % MCV 91.3 fL MCH 28.6 pg MCHC 31.3 g/dL RDW 13.3 % Platelet Count 223 10 3/cmm MPV 11.5 fL Neutrophils 4.1 10 3/uL Lymphocytes 2.1 10 3/uL Monocytes 0.6 10 3/uL Eosinophils 0.3 10 3/uL Basophils 0.1 10 3/uL Neutrophil % 57.3 % Lymphocyte % 28.6 % Monocyte % 8.9 % Eosinophil % 4.4 % Basophils % 0.7 % Impression: History of clear cell renal cell carcinoma involving left kidney status post laparoscopic nephro ureterectomy/robotic-assisted done in January 2019 final pathology report showed clear cell renal cell carcinoma grade 4, unifocal, 4. by 3 x 2.8 cm no sarcomatoid features seen, but rhabdoid features seen focally, lymphovascular invasion indeterminate, probably positive. Clear surgical margin but tumor extends into renal sinus fat, but not beyond Gerota's fascia., T3a No lymph nodes submitted are none found in the specimen for evaluation e.g. Nx Stage III History of transitional carcinoma involving the right ureter status post complete excision, now being followed by urology bone scan done on 02/01/2019 showed increase uptake in the left transverse processes of T10, T11, T12 and L1, due to the distribution suspect these are probably fractures and not metastatic disease. Soft tissue abnormality seen on lumbar spine CT scan at T12 in the posterior vertebral body does not demonstrate increase uptake. Additionally intense focus of uptake in the anterior lateral left 11th rib may also be a fracture due to recent history of trauma. History of back injury 20 years ago History of CABG History of CVA Follow-up CT scan of abdomen pelvis done on 06/20/2019 showed multiple pulmonary nodules in the lung bases the largest measuring 8-9 mm these appear progressed in size and number since 03/09/2019 suspicious for metastatic disease Left adrenal lesion is increased in size over the past several months measuring 1.4 cm, metastatic disease cannot be excluded Pathologic compression with anterior wedging of T12 vertebral body with a moderate central canal stenosis. Lytic lesion in the posterior T12 vertebral body has progressed consistent with metastatic disease. Associated epidural involvement. Plan: Discussed with patient and his [id number], regarding his concerns and issues. Patient and his [id number] has decided to proceed with hospice as radiation therapy did not improve his back pain much and radiation oncology has already recommended hospice care and patient and his family requesting referred to hospice. And considering his advanced age and symptomatic metastatic renal cell carcinoma, hospice care is an appropriate option, In that case, we will refer him to hospice care Signed By: Jonnie Shahid M.D. <<Signature on File>>
== END 2019-09-24 23:59 | disposition home or self-care (01) ==
LOC: ONCMED 06:44
PROVIDERS: Absent Provider Radiology Radiation Oncology; Family Provider Registered Nurse; PCP Family Medicine; Visit Provider Internal Medicine Hematology & Oncology
DX: Z51.0 Encounter for antineoplastic radiation therapy (principal); C64.2 Malignant neoplasm of left kidney, except renal pelvis; C79.51 Secondary malignant neoplasm of bone; G89.3 Neoplasm related pain (acute) (chronic); E27.9 Disorder of adrenal gland, unspecified; M84.58XD Pathological fracture in neoplastic disease, other specified site, subsequent encounter for fracture with routine healing; R91.8 Other nonspecific abnormal finding of lung field; M10.9 Gout, unspecified; I25.10 Atherosclerotic heart disease of native coronary artery without angina pectoris; E78.5 Hyperlipidemia, unspecified; I10 Essential (primary) hypertension; E11.9 Type 2 diabetes mellitus without complications; Z85.54 Personal history of malignant neoplasm of ureter; Z95.1 Presence of aortocoronary bypass graft; Z86.73 Personal history of transient ischemic attack (TIA), and cerebral infarction without residual deficits
CPT/HCPCS: 77386; 77387; 99214